=== PATIENT | female | born 1995 | race Caucasian/White ===

== ENCOUNTER 2018-11-19 20:02 | Inpatient (IN) ==
[2018-11-19] MEDS ORDERED: ONDANSETRON INJ 2 MG/ML 2 ML VIAL IV STA (20:52)
[2018-11-19] MEDS ORDERED: fentaNYL citrate 100 MCG/2 ML VIAL IV PRN (20:52)
[2018-11-19] MEDS ORDERED: KETOROLAC TROMETHAMINE 15 MG/ML VIAL IV STA (20:52)
[2018-11-19] MEDS ORDERED: SODIUM CHLORIDE 0.9% 500 ML IV SCH (21:00)
[2018-11-19 21:24] LABS: Basophils # (auto) 0.02 K/uL (0-0.2); Basophils % (auto) 0.2 %; Eosinophils # (auto) 0.02 K/uL (0-0.5); Eosinophils % (auto) 0.2 %; Hematocrit (blood only) 39.9 % (37-47); Hemoglobin 13.4 g/dL (12.0-16.0); Immature Granulocytes # (auto) 0.03 K/uL (0.00-0.02); Immature Granulocytes % (auto) 0.3 %; Lymphocytes % (auto) 5.7 %; Mean Corpuscular Hemoglobin 31.8 pg (25-34); Mean Corpuscular Hgb Conc 33.6 g/dL (32-36); Mean Corpuscular Volume 94.8 fL (80-100); Mean Platelet Volume 10.5 fL (7.4-10.4); Monocytes # (auto) 0.53 K/uL (0.11-0.59); Monocytes % (auto) 6.1 %; Neutrophils # (auto) 7.63 K/uL (1.4-6.5); Neutrophils % (auto) 87.5 %; Platelet Count 341 K/uL (130-400); RDW Standard Deviation 47.9 fL (36.4-46.3); Red Blood Count 4.21 M/uL (4.2-5.4); White Blood Count 8.73 K/uL (4.8-10.8)
[2018-11-19 21:40] LABS: Creatinine Clr Calc Pharmacy 113.4 ml/min; Est GFR (African American) 130.5; Est GFR (Non-African American) 112.6; Potassium 3.8 mmol/L (3.5-5.1)
[2018-11-19 21:43] LABS: Bilirubin,Total 2.4 mg/dl (0.2-1); Globulin 4.2 gm/dl (2.5-4.0); Total Protein 8.2 gm/dl (6.4-8.2)
--- NOTE | 2018-11-19 21:47 | Ultrasound Report ---
ULTRASOUND RIGHT UPPER QUADRANT ABDOMEN CLINICAL HISTORY: Right upper quadrant abdominal pain. COMPARISON STUDY: Abdominal radiographs dated 06/25/2014. TECHNIQUE: Real-time, grayscale, and color flow sonography of the right upper quadrant of the abdomen was performed. Images are reviewed in the transverse and longitudinal planes. FINDINGS: Liver: The liver is normal in size and echotexture. There is no intrahepatic biliary ductal dilatatio n. The main portal vein is patent. Gallbladder: The gallbladder is distended. There are numerous small shadowing calcified gallstone. Th ere is no gallbladder wall thickening or pericholecystic fluid. A sonographic Gaviria's sign is report edly absent. The common bile duct measures up to 0.9 cm in diameter. Pancreas: Visualized portions of the pancreatic head and body are normal in appearance. The splenic v ein is patent. Right kidney: Survey images of the right kidney demonstrate normal size and echotexture. There is no hydronephrosis. Ascites: None. IMPRESSION: 1. The gallbladder is distended and there are numerous small calcified gallstones. There is no gallbl adder wall thickening or pericholecystic fluid. Findings are equivocal for acute cholecystitis which is not excluded. Consider nuclear hepatobiliary scan for further assessment. 2. There is dilatation of the common bile duct which measures up to 9 mm. No intrahepatic ductal dila tation is seen. Electronically signed by: Victor Manuel Hernandez M.D. 11/19/2018 9:45 PM
[2018-11-19 22:35] LABS: Appearance Urine Clear (Clear); Blood Urine Negative (Negative); Color Urine Dark Yellow; Glucose Urine UA Negative (Negative); Ketones Urine Negative (Negative); Leukocyte Esterase Urine Negative (Negative); Nitrite Urine Negative (Negative); Protein Urine Negative (Negative); Urobilinogen Urine Negative (Negative)
[2018-11-19 22:40] LABS: Bilirubin Urine 1+ (Negative); Ictotest Urine Positive (Negative)
[2018-11-19] MEDS ORDERED: SODIUM CHLORIDE 0.9% 1000ML 500 ML IV ONE (22:57)
--- NOTE | 2018-11-19 23:06 | Emergency Department Note ---
Entered by Chanel Murray acting as a scribe for Isaiah Holley DO History of Present Illness General Chief complaint: Abdominal Pain Stated complaint: ABD PAIN Time Seen by Provider: 11/19/18 20:48 Source: patient History of Present Illness Provider complaint: abdominal pain Location: abdomen Radiation: non-radiation Severity: similar to prior episodes Maximum Pain Intensity: 5 Associated symptoms: + other (Negative diarrhea); no nausea/vomiting The patient, who is a 23 year old female with a medical history of abdominal pain, nausea and vomiting, presents to the Emergency Room with complaints of abdominal pain that started 8 hours ago. The patient states that she was originally urgent care and was sent to the ER for further evaluations. The patient explains that she was at her nephews birthday constitution party. The patient states that she had fruits, some chips and a turkey wrap prior to the onset of her symptoms. The patient admits that she is nauseous but did not vomit or have diarrhea. The patient The patient expresses that she has had a similar pain intensity in her abdomen before but it was not in the same area. Home Medications Home Medications Medication Instructions Recorded Confirmed Type azathioprine 100 mg PO QAM 11/19/18 11/19/18 History fluticasone propionate [Flonase 1 spray INTRANASAL HS 11/19/18 11/19/18 History Allergy Relief] infliximab [Remicade] 100 mg IV DIRECTED 11/19/18 11/19/18 History levonorgestrel-ethinyl estrad 1 tab PO QAM 11/19/18 11/19/18 History [[place] (28)] Allergies Allergy/AdvReac Type Severity Reaction Status Date / Time cephalexin AdvReac Hives Unverified 11/19/18 22:08 Past Med/Surg History Medical History Abdominal pain (Acute) Nausea and vomiting (Acute) Social History Feels Safe at Home: Yes Smoking Status: Never smoker Review of Systems See HPI for pertinent positives & negatives. and A total of 10 systems reviewed and were otherwise negative Physical Exam Vital Signs Vital Signs - 24 hr 11/19/18 20:06 11/19/18 21:07 11/19/18 21:08 Temperature 36.7 C Temperature Source Oral Sepsis Recent Fever Within 48 Hours No Sepsis New/Unexplained Change in Mental Status No Sepsis Action Taken by Nursing No Action Required Pulse Rate 71 Pulse Rate [Finger] 61 Pulse Rhythm Regular Pulse Strength Normal Respiratory Rate 20 19 Blood Pressure 123/74 Blood Pressure [Right Arm] 123/56 L Blood Pressure Mean 90 Blood Pressure Mean [Right Arm] 78 Blood Pressure Position Sitting Pulse Oximetry 98 95 Oxygen Delivery Method Room Air Room Air 11/19/18 22:26 Temperature Temperature Source Sepsis Recent Fever Within 48 Hours Sepsis New/Unexplained Change in Mental Status Sepsis Action Taken by Nursing Pulse Rate Pulse Rate [Finger] 71 Pulse Rhythm Pulse Strength Respiratory Rate 13 Blood Pressure Blood Pressure [Right Arm] 117/73 Blood Pressure Mean Blood Pressure Mean [Right Arm] 87 Blood Pressure Position Pulse Oximetry 98 Oxygen Delivery Method Room Air CONSTITUTIONAL/VITAL SIGNS: Reviewed / noted above. GENERAL: Non-toxic in appearance. INTEGUMENTARY: Warm, dry, and [place]. HEAD: Normocephalic. EYES: without scleral icterus or trauma. ENT/OROPHARYNX: clear and moist. LYMPHADENOPATHY/NECK: Is supple without lymphadenopathy or meningismus. RESPIRATORY: Lungs clear and equal. CARDIOVASCULAR: Regular rate and rhythm. GI/ABDOMEN: Soft. Tenderness in the upper abdominal with right greater than left. No organomegaly or pulsatile mass. No rebound or guarding. Normal bowel sounds. EXTREMITIES: Warm and well perfused. BACK: No CVA tenderness. NEUROLOGICAL: Intact without focal deficits. PSYCHIATRIC: normal affect. MUSCULOSKELETAL: Normally developed with good muscle tone. Course 2049: Past medical records reviewed. The patient was evaluated in room C1. A complete history and physical exam was performed. 2249: I reviewed the patient's case with Dr. Radha Fried, [facility] Hospitalist. She will evaluate the patient for further management. Consultations Consultation #1: I reviewed the patient's case with Dr. Radha Fried, [facility] Hospitalist. She will evaluate the patient for further management. Time: 22:50 Administered Medications Discontinued Medications Sodium Chloride (Nss) 500 mls @ 999 mls/hr IV .Q31M APRIL Stop: 11/19/18 21:30 Last Infusion: 11/19/18 22:04 Dose: 0 mls/hr Documented by: [id number] Admin: 11/19/18 21:03 Dose: 999 mls/hr Documented by: [id number] Ketorolac Tromethamine (Toradol) 15 mg IV NOW STA Stop: 11/19/18 20:53 Last Admin: 11/19/18 21:02 Dose: 15 mg Documented by: [id number] Ondansetron HCl (Zofran) 4 mg IV NOW STA Stop: 11/19/18 20:53 Last Admin: 11/19/18 21:03 Dose: 4 mg Documented by: [id number] Medical Decision Making Differential Diagnosis Differential diagnosis includes: appendicitis, diverticulitis, PUD, biliary pathology, UTI, pancreatitis, obstruction, mesenteric ischemia, aortic pathology, infections, inflammatory bowel disease, renal colic, as well as others were entertained. Medical Records Attestation: I reviewed the patient's medical records. Home Medications Current Medication List: was personally reviewed by de Laboratory Data Attestation: I reviewed the patient's lab results. Result diagrams: 11/19/18 21:06 11/19/18 21:06 Lab Results 11/19/18 11/19/18 11/19/18 Range/Units 21:06 21:06 22:28 WBC 8.73 (4.8-10.8) K/uL RBC 4.21 (4.2-5.4) M/uL Hgb 13.4 (12.0-16.0) g/dL Hct 39.9 (37-47) % MCV 94.8 (80-100) fL MCH 31.8 (25-34) pg MCHC 33.6 (32-36) g/dL RDW Std Deviation 47.9 H (36.4-46.3) fL RDW Coeff of Jean Pierre 14.0 (11.5-14.5) % Plt Count 341 (130-400) K/uL MPV 10.5 H (7.4-10.4) fL Immature Gran % (Auto) 0.3 % Neut % (Auto) 87.5 % Lymph % (Auto) 5.7 % [place] % (Auto) 6.1 % Eos % (Auto) 0.2 % Baso % (Auto) 0.2 % Immature Gran # (Auto) 0.03 H (0.00-0.02) K/uL Neut # (Auto) 7.63 H (1.4-6.5) K/uL Lymph # (Auto) 0.50 L (1.2-3.4) K/uL [place] # (Auto) 0.53 (0.11-0.59) K/uL Eos # (Auto) 0.02 (0-0.5) K/uL Baso # (Auto) 0.02 (0-0.2) K/uL Sodium 137 (136-145) mmol/L Potassium 3.8 (3.5-5.1) mmol/L Chloride 103 (98-107) mmol/L Carbon Dioxide 26 (21-32) mmol/L Anion Gap 8.0 (3-11) BUN 7 (7-18) mg/dl Creatinine 0.74 (0.6-1.2) mg/dl Est Cr Clr Drug Dosing 113.4 ml/min Est GFR ( Amer) 130.5 Est GFR (Non-Af Amer) 112.6 BUN/Creatinine Ratio 10.0 (10-20) Glucose 111 H (70-99) mg/dl Calcium 9.0 (8.5-10.1) mg/dl Total Bilirubin 2.4 H (0.2-1) mg/dl AST 108 H (15-37) U/L ALT 47 (12-78) U/L Alkaline Phosphatase 80 (45-117) U/L Total Protein 8.2 (6.4-8.2) gm/dl Albumin 4.0 (3.4-5.0) gm/dl Globulin 4.2 H (2.5-4.0) gm/dl Albumin/Globulin Ratio 1.0 (0.9-2) Lipase 93 (73-393) U/L Urine Color Dark Yellow Urine Appearance Clear (Clear) Urine pH 8.0 H (4.5-7.5) Ur Specific [place] 1.020 (1.000-1.030) Urine Protein Negative (Negative) Urine Glucose (UA) Negative (Negative) Urine Ketones Negative (Negative) Urine Blood Negative (Negative) Urine Nitrite Negative (Negative) Urine Bilirubin 1+ H (Negative) Urine Urobilinogen Negative (Negative) Ur Leukocyte Esterase Negative (Negative) Imaging Data Radiologist's Impression: Radiology results as stated below per my review and the radiologist's interpretation: ULTRASOUND RIGHT UPPER QUADRANT ABDOMEN CLINICAL HISTORY: Right upper quadrant abdominal pain. COMPARISON STUDY: Abdominal radiographs dated 06/25/2014. TECHNIQUE: Real-time, grayscale, and color flow sonography of the right upper quadrant of the abdomen was performed. Images are reviewed in the transverse and longitudinal planes. FINDINGS: Liver: The liver is normal in size and echotexture. There is no intrahepatic biliary ductal dilatation. The main portal vein is patent. Gallbladder: The gallbladder is distended. There are numerous small shadowing calcified gallstone. There is no gallbladder wall thickening or pericholecystic fluid. A sonographic Gaviria's sign is reportedly absent. The common bile duct measures up to 0.9 cm in diameter. Pancreas: Visualized portions of the pancreatic head and body are normal in appearance. The splenic vein is patent. Right kidney: Survey images of the right kidney demonstrate normal size and echotexture. There is no hydronephrosis. Ascites: None. IMPRESSION: 1. The gallbladder is distended and there are numerous small calcified gallstones. There is no gallbladder wall thickening or pericholecystic fluid. Findings are equivocal for acute cholecystitis which is not excluded. Consider nuclear hepatobiliary scan for further assessment. 2. There is dilatation of the common bile duct which measures up to 9 mm. No intrahepatic ductal dilatation is seen. Electronically signed by: Victor Manuel Hernandez M.D. 11/19/2018 9:45 PM Blood Pressure Blood Pressure Findings: Normal blood pressure MDM Narrative This is a 23-year-old female who presents to the ED with a chief complaint of epigastric abdominal pain and nausea that started about 1 PM. She states that she ate some chocolate cake and a chicken wrap about an hour prior to this. She has a history of Crohn's disease but states that her symptoms did not feel like Crohn's disease. She denies any vomiting or diarrhea. The patient's exam reveals some tenderness over the upper abdomen primarily in the right upper quadrant and epigastric area. Her CBC is normal. Complete metabolic panel was normal. Total bilirubin is 2.4. AST is 108. Lipase was negative. Urine did not show infection. Ultrasound reveals gallstones and equivocal findings for acute cholecystitis with a dilated common bile duct. HIDA scan was recommended. The patient's symptoms were treated with IV Toradol, IV fentanyl, IV Zofran and IV fluids. I spoke to the hospitalist about the patient and the patient will be seen by the hospitalist service for further evaluation and care. Impression & Plan Biliary colic, Biliary obstruction Discharge Plan Visit Data Chief Complaint: Abdominal Pain Stated Complaint: ABD PAIN ED Provider: Isaiah Holley Discharge Problem: Biliary colic, Biliary obstruction Patient Disposition: Being Evaluated by Hospitalist Forms Stand Alone Forms: My [facility] Prescriptions Prescriptions: No Action levonorgestrel-ethinyl estrad [[place] (28)] 0.15-0.03 mg Tablet 1 tab PO QAM RF: 0 azathioprine 50 mg Tablet 100 mg PO QAM RF: 0 Remicade 100 mg Recon Soln 100 mg IV DIRECTED RF: 0 fluticasone propionate [Flonase Allergy Relief] 50 mcg/actuation [place],Suspension 1 spray INTRANASAL HS RF: 0 Referrals Referrals: PCP,NO [Primary Care Provider] - The scribe's documentation has been prepared under my direction and personally r eviewed by me in its entirety. I confirm that the note above accurately reflects all work, treatment, procedures, and medical decision making performed by me.
[2018-11-19 23:20] LABS: Pregnancy Test, Serum Negative (Negative)
--- NOTE | 2018-11-19 23:36 | History & Physical Report ---
Date of Service November 19, 2018 Assessment & Plan (1) Cholecystitis: Possible acute cholecystitis. Patient with RUQ discomfort, RUQUS is equivocal, HIDA recommended. She is afebrile, HD stable, non-toxic in appearance, no leukocytosis. Still with abdominal pain 4/10 -Observation to medical floor -Morphine PRN pain -Zofran PRN nausea -Zosyn 3.375gm IV q 8 hours - patient immunosuppressed -HIDA scan ordered - General Surgery consultation pending results -Repeat LFTs in AM Present on Admission?: Yes (2) Biliary obstruction: Suspected biliary obstruction. Patient with elevated Tbili at 2.4, urine + for bilirubin, gallbladder US reveals dilatation of the CBD to 9mm. Alkaline phosphatase is within normal limits. Numerous gallstones present. Patient with history of Crohn's disease often causing increased gall stone formation. Patient afebrile, no leukocytosis, non-toxic in appearance - no concern for cholangitis -Check MRCP -GI consultation pending results -Repeat LFTs in the AM -Empiric Zosyn as above. Present on Admission?: Yes (3) Crohns disease: Chronic. Stable -Continue Azathioprine -Remicade F/E/N - NSS at 80mL/hr x 2 liters, electrolytes WNL, NPO for now Ppx - Low risk for DVT, IVF and ambulation encouraged Code - Full per discussion with patient Disposition - Observation to medical floor History of Present Illness Chief Complaint: abdominal pain Primary Care Provider: NO PCP Henri Chisholm is a 23yo C female with history of Crohn's disease on immunosuppressive therapy with Azathioprine and Remicade presenting with acute onset of upper abdominal pain. Patient was at a birthday democrat this afternoon and ate some cake and a sandwich. Approximately one hour after eating she developed severe RUQ and upper abdominal pain. Pain rated 8-9/10, squeezing in nature associated with nausea. She denies fevers/chills/jaundice or icterus. No diarrhea/melena/hematochezia. No sick contacts. No history of prior. Still with discomfort 4/10 in severity. Patient's Crohn's is well controlled with her current regimen. She states that this pain is nothing like her prior Crohn's flares. ER Course: Fentanyl, Toradol, Zofran, NSS Allergies Allergy/AdvReac Type Severity Reaction Status Date / Time cephalexin AdvReac Hives Unverified 11/19/18 22:08 Home Medications Home Medications Medication Instructions Recorded Confirmed Type azathioprine 100 mg PO QAM 11/19/18 11/19/18 History fluticasone propionate [Flonase 1 spray INTRANASAL HS 11/19/18 11/19/18 History Allergy Relief] infliximab [Remicade] 100 mg IV DIRECTED 11/19/18 11/19/18 History levonorgestrel-ethinyl estrad 1 tab PO QAM 11/19/18 11/19/18 History [[place] (28)] Past Med/Surg History Medical History Crohn disease No significant past surgical history Family History Other No significant family history Social History marital status: Feels Safe at Home: Yes Smoking Status: Never smoker Hx Alcohol Use: No Hx Substance Use: No Review of Systems Review of Systems: All systems reviewed & are unremarkable except as noted in HPI & below Patient reports difficulty with deep breathing secondary to discomfort Physical Exam Physical Exam: General: patient sitting upright in bed, NAD, non-toxic in appearance, AA&O x 4 Skin: warm, dry, intact, no rashes or lesions, no jaundice HEENT: NC/AT, PERRL, EOMI, anicteric sclera, conjunctiva without injection, external ear normal to inspection and nontender, nares patent, moist mucus membranes, dentition intact, no oropharyngeal lesions, neck supple, trachea midline, no LAD, no thyromegaly, no JVD Heart: +S1/S2, regular, no m/r/g Lungs: equal air entry bilaterally, no rales/rhonchi/wheezes Abd: +BS, soft, ND, tenderness to palpation in the epigastric region and RUQ with voluntary guarding, no masses/organomegaly/ascites Ext: warm, 2+ pulses in UE/LE bilaterally, no clubbing/cyanosis or edema Neuro: nonfocal, patient AA&O x 4, speech intact, no facial droop, moving all extremities on command with equal strength 5/5 Results & Data Vital Signs (Past 12 Hours) Vital Signs Temp Pulse Pulse Resp BP BP Pulse Ox 11/19/18 22:26 71 13 117/73 98 11/19/18 21:08 61 19 123/56 L 95 11/19/18 20:06 36.7 C 71 20 123/74 98 Laboratory Results Lab Results 11/19/18 11/19/18 11/19/18 Range/Units 21:05 21:06 21:06 WBC 8.73 (4.8-10.8) K/uL RBC 4.21 (4.2-5.4) M/uL Hgb 13.4 (12.0-16.0) g/dL Hct 39.9 (37-47) % MCV 94.8 (80-100) fL MCH 31.8 (25-34) pg MCHC 33.6 (32-36) g/dL RDW Std Deviation 47.9 H (36.4-46.3) fL RDW Coeff of [place] 14.0 (11.5-14.5) % Plt Count 341 (130-400) K/uL MPV 10.5 H (7.4-10.4) fL Immature Gran % (Auto) 0.3 % Neut % (Auto) 87.5 % Lymph % (Auto) 5.7 % [place] % (Auto) 6.1 % Eos % (Auto) 0.2 % Baso % (Auto) 0.2 % Immature Gran # (Auto) 0.03 H (0.00-0.02) K/uL Neut # (Auto) 7.63 H (1.4-6.5) K/uL Lymph # (Auto) 0.50 L (1.2-3.4) K/uL [place] # (Auto) 0.53 (0.11-0.59) K/uL Eos # (Auto) 0.02 (0-0.5) K/uL Baso # (Auto) 0.02 (0-0.2) K/uL Sodium 137 (136-145) mmol/L Potassium 3.8 (3.5-5.1) mmol/L Chloride 103 (98-107) mmol/L Carbon Dioxide 26 (21-32) mmol/L Anion Gap 8.0 (3-11) BUN 7 (7-18) mg/dl Creatinine 0.74 (0.6-1.2) mg/dl Est Cr Clr Drug Dosing 113.4 ml/min Est GFR ( Amer) 130.5 Est GFR (Non-Af Amer) 112.6 BUN/Creatinine Ratio 10.0 (10-20) Glucose 111 H (70-99) mg/dl Calcium 9.0 (8.5-10.1) mg/dl Total Bilirubin 2.4 H (0.2-1) mg/dl AST 108 H (15-37) U/L ALT 47 (12-78) U/L Alkaline Phosphatase 80 (45-117) U/L Total Protein 8.2 (6.4-8.2) gm/dl Albumin 4.0 (3.4-5.0) gm/dl Globulin 4.2 H (2.5-4.0) gm/dl Albumin/Globulin Ratio 1.0 (0.9-2) Lipase 93 (73-393) U/L HCG, Qual Negative (Negative) Urine Color Urine Appearance (Clear) Urine pH (4.5-7.5) Ur Specific [place] (1.000-1.030) Urine Protein (Negative) Urine Glucose (UA) (Negative) Urine Ketones (Negative) Urine Blood (Negative) Urine Nitrite (Negative) Urine Bilirubin (Negative) Urine Urobilinogen (Negative) Ur Leukocyte Esterase (Negative) 11/19/18 Range/Units 22:28 WBC (4.8-10.8) K/uL RBC (4.2-5.4) M/uL Hgb (12.0-16.0) g/dL Hct (37-47) % MCV (80-100) fL MCH (25-34) pg MCHC (32-36) g/dL RDW Std Deviation (36.4-46.3) fL RDW Coeff of [place] (11.5-14.5) % Plt Count (130-400) K/uL MPV (7.4-10.4) fL Immature Gran % (Auto) % Neut % (Auto) % Lymph % (Auto) % [place] % (Auto) % Eos % (Auto) % Baso % (Auto) % Immature Gran # (Auto) (0.00-0.02) K/uL Neut # (Auto) (1.4-6.5) K/uL Lymph # (Auto) (1.2-3.4) K/uL [place] # (Auto) (0.11-0.59) K/uL Eos # (Auto) (0-0.5) K/uL Baso # (Auto) (0-0.2) K/uL Sodium (136-145) mmol/L Potassium (3.5-5.1) mmol/L Chloride (98-107) mmol/L Carbon Dioxide (21-32) mmol/L Anion Gap (3-11) BUN (7-18) mg/dl Creatinine (0.6-1.2) mg/dl Est Cr Clr Drug Dosing ml/min Est GFR ( Amer) Est GFR (Non-Af Amer) BUN/Creatinine Ratio (10-20) Glucose (70-99) mg/dl Calcium (8.5-10.1) mg/dl Total Bilirubin (0.2-1) mg/dl AST (15-37) U/L ALT (12-78) U/L Alkaline Phosphatase (45-117) U/L Total Protein (6.4-8.2) gm/dl Albumin (3.4-5.0) gm/dl Globulin (2.5-4.0) gm/dl Albumin/Globulin Ratio (0.9-2) Lipase (73-393) U/L HCG, Qual (Negative) Urine Color Dark Yellow Urine Appearance Clear (Clear) Urine pH 8.0 H (4.5-7.5) Ur Specific [place] 1.020 (1.000-1.030) Urine Protein Negative (Negative) Urine Glucose (UA) Negative (Negative) Urine Ketones Negative (Negative) Urine Blood Negative (Negative) Urine Nitrite Negative (Negative) Urine Bilirubin 1+ H (Negative) Urine Urobilinogen Negative (Negative) Ur Leukocyte Esterase Negative (Negative) Diagnostic Findings ULTRASOUND RIGHT UPPER QUADRANT ABDOMEN CLINICAL HISTORY: Right upper quadrant abdominal pain. COMPARISON STUDY: Abdominal radiographs dated 06/25/2014. TECHNIQUE: Real-time, grayscale, and color flow sonography of the right upper quadrant of the abdomen was performed. Images are reviewed in the transverse and longitudinal planes. FINDINGS: Liver: The liver is normal in size and echotexture. There is no intrahepatic biliary ductal dilatation. The main portal vein is patent. Gallbladder: The gallbladder is distended. There are numerous small shadowing calcified gallstone. There is no gallbladder wall thickening or pericholecystic fluid. A sonographic Gaviria's sign is reportedly absent. The common bile duct measures up to 0.9 cm in diameter. Pancreas: Visualized portions of the pancreatic head and body are normal in appearance. The splenic vein is patent. Right kidney: Survey images of the right kidney demonstrate normal size and echotexture. There is no hydronephrosis. Ascites: None. IMPRESSION: 1. The gallbladder is distended and there are numerous small calcified gallstones. There is no gallbladder wall thickening or pericholecystic fluid. Findings are equivocal for acute cholecystitis which is not excluded. Consider nuclear hepatobiliary scan for further assessment. 2. There is dilatation of the common bile duct which measures up to 9 mm. No intrahepatic ductal dilatation is seen. Electronically signed by: Victor Manuel Hernandez M.D. 11/19/2018 9:45 PM Dictated: 11/19/[id number] Transcribed: 11/19/182142 Code Status & VTE Plan VTE Prophylaxis Plan VTE Prophylaxis will be ordered: No PG Care Time/CCT Total # of Minutes Spent Total Time Spent with Patient: Total time spent is greater than 50% in coordination of care (as documented) at patient's floor/unit and/or counseling patient: (1) Crohns disease Gastrointestinal tract location: unspecified location Digestive disease complication type: without complication Qualified Code(s): K50.90 - Crohn's disease, unspecified, without complications
[2018-11-20] MEDS ORDERED: PIPERACILL/TAZOBAC CONSULT ACTIVE PRN (00:45)
[2018-11-20] MEDS ORDERED: SODIUM CHLORIDE 0.9% 1000ML 1,000 ML IV SCH (00:45)
[2018-11-20] MEDS ORDERED: MoRPHine SULFATE 2 MG/ML CARP IV PRN ×2 (00:45→18:23)
[2018-11-20] MEDS ORDERED: ALUMINUM/MAGNESIUM SUSP 30 ML UDC PO PRN (00:45)
[2018-11-20] MEDS ORDERED: PIPERACILLIN/TAZOBACTAM 4.5 GM in DEXTROSE 5% 100 ML IV ONE (01:15)
[2018-11-20] MEDS ORDERED: PIPERACILLIN/TAZOBACTAM 3.375 GM in DEXTROSE 5% 100 ML IV SCH (06:00)
[2018-11-20 06:42] LABS: Basophils # (auto) 0.01 K/uL (0-0.2); Basophils % (auto) 0.2 %; Eosinophils # (auto) 0.06 K/uL (0-0.5); Eosinophils % (auto) 0.9 %; Hematocrit (blood only) 35.5 % (37-47); Hemoglobin 11.8 g/dL (12.0-16.0); Immature Granulocytes # (auto) 0.01 K/uL (0.00-0.02); Immature Granulocytes % (auto) 0.2 %; Lymphocytes # (auto) 0.97 K/uL (1.2-3.4); Mean Corpuscular Hemoglobin 31.8 pg (25-34); Mean Corpuscular Hgb Conc 33.2 g/dL (32-36); Mean Corpuscular Volume 95.7 fL (80-100); Mean Platelet Volume 10.2 fL (7.4-10.4); Monocytes # (auto) 0.49 K/uL (0.11-0.59); Monocytes % (auto) 7.6 %; Neutrophils # (auto) 4.92 K/uL (1.4-6.5); Neutrophils % (auto) 76.1 %; Platelet Count 289 K/uL (130-400); RDW Coefficient of Variation 13.9 % (11.5-14.5); RDW Standard Deviation 48.1 fL (36.4-46.3); Red Blood Count 3.71 M/uL (4.2-5.4); White Blood Count 6.46 K/uL (4.8-10.8)
[2018-11-20 07:11] LABS: BUN Creatinine Ratio 6.9 (10-20); Creatinine Clr Calc Pharmacy 113.3 ml/min; Est GFR (African American) 130.5; Est GFR (Non-African American) 112.6; Potassium 3.8 mmol/L (3.5-5.1)
--- NOTE | 2018-11-20 07:28 | Magnetic Resonance Report ---
MR MRCP CLINICAL HISTORY: dilated CBD COMPARISON STUDY: Gallbladder ultrasound dated 11/19/2018 FINDINGS: Innumerable gallstones are visualized. There are 2 distal common bile duct filling defects. Each measures approximately 2 mm. These are cons istent with calculi. The common bile duct measures 6 mm. There is no evidence of significant intrahepatic biliary ductal dilatation. The pancreatic duct is of normal caliber. IMPRESSION: 1. Cholelithiasis 2. Choledocholithiasis 3. 6 mm common bile duct. No evidence of pancreatic ductal dilatation Electronically signed by: Michael Mcghee M.D. 11/20/2018 7:27 AM
[2018-11-20 07:56] LABS: Bilirubin Direct 1.3 mg/dl (0-0.2); Bilirubin,Total 2.8 mg/dl (0.2-1); Total Protein 6.5 gm/dl (6.4-8.2)
--- NOTE | 2018-11-20 09:11 | Gastrointestinal Consultation ---
Date of Consultation November 20, 2018 Assessment & Plan (1) Choledocholithiasis: Ms. Chisholm is a 23 yr old female with choledocholithiasis (pain, elevated LFTs, MRCP with CBD stones) w/o evidence of cholangitis (denies fever/chills, no leukocytosis). 1. Plan for ERCP today by Dr. Meadows. Procedure, including images of the biliary system; risks and benefits explained. 2. No clear GI indication for antibiotics. 3. Please keep pt NPO. 4. Will consult surgery to consider eventual cholecystectomy. 5. Check CBC, LFTs tomorrow. 6. Further recommendations to follow ERCP. Present on Admission?: Yes Supervising Physician Co-Signing Physician Notes I performed a history and physical examination of the patient, including specifically on physical exam - soft, nontender abdomen. I have discussed the patient's management with Anna. Please refer to the nurse practitioner's note for the documented findings and plan of care. ERCP today for CBD stones. History of Present Illness Reason for Consultation: Increasing bili, choledocholithiasis Requesting Physician: Wil Rice MD Attending Physician: Wil Rice MD History of Present Illness Ms. Henri Chisholm in a 23 yr old female with a hx of Crohn's PCP who presented to the ED yesterday for upper abdomen pain. This began after eating lunch yesterday. Because the pain was intense, she presented to the [facility] ED. On arrival, US with gallstones and CBD dilated to 9mm. MRCP early this morning with two distal CBD stones. LFTs are increasing: T Bili 2.4 ->2.8, AST 108->123, ALT 47->55, Alk Phos 80->75. Lipase and WBCs are normal. The pt is seen and examined while she is sitting up in bed. She is awake, alert, oriented, comfortable. She reports severe pain in the upper abdomen after eating yesterday around noon. She got relief after pain medication in the ED. She denies any recent fevers, chills sweats. She had nausea but not vomiting or diarrhea. Denies any recent yellow skin/eyes or very dark urine. Allergies Allergy/AdvReac Type Severity Reaction Status Date / Time cephalexin AdvReac Hives Unverified 11/19/18 22:08 Home Medications Home Medications Medication Instructions Recorded Confirmed Type azathioprine 100 mg PO QAM 11/19/18 11/19/18 History fluticasone propionate [Flonase 1 spray INTRANASAL HS 11/19/18 11/19/18 History Allergy Relief] infliximab [Remicade] 100 mg IV DIRECTED 11/19/18 11/19/18 History levonorgestrel-ethinyl estrad 1 tab PO QAM 11/19/18 11/19/18 History [[place] (28)] Patient History Medical History Crohn disease No significant past surgical history Family History Other No significant family history Social History Preferred Language: Kazakh Communication Ability: Effective Radiology Transporter Required: No Beliefs That Will Affect Care: None marital status: Current Living Situation: Spouse Feels Safe at Home: Yes Smoking Status: Never smoker Hx Alcohol Use: Yes Alcohol type: beer, wine and hard liquor Hx Substance Use: No Review of Systems Review of Systems: ROS: Gen: Denies weakness, fevers, weight loss Eyes: No eye redness, or pain, no recent vision changes Resp: No SOB, no cough Cardio: No palpitations/irregular beats, no chest pain GI: + post prandial upper abdominal pain, no nausea/vomiting : Denies pain on urination Skin: No jaundice, itching or new rashes Physical Exam Constitutional: WD/WN, vitals as above well developed, well nourished and + acute distress Eyes: PERRL, conjunctivae normal, anicteric sclerae ENMT: external ear and nose normal, oropharynx normal Neck: trachea midline, no thyromegaly Respiratory: normal respiratory effort, lungs clear to auscultation Cardiovascular: RRR, no murmur, no edema Gastrointestinal (Abdomen): normal bowel sounds, soft, nontender, no hepatosplenomegaly Skin: no rashes, warm and dry Neurologic: PERRL, EOMI, accommodation nl, no face palsy, no dysarthria Psychiatric: A+Ox3, euthymic affect Lymphatic: no cervical or axillary lymphadenopathy Results & Data Vital Signs (Past 12 Hours) Vital Signs Temp Pulse Pulse Resp BP BP Pulse Ox 11/20/18 07:23 36.5 C 67 16 99/67 L 100 11/20/18 04:45 36.7 C 58 L 18 93/54 L 99 11/20/18 00:08 37 C 70 16 110/71 98 11/19/18 23:40 100 11/19/18 23:30 119/73 11/19/18 23:20 95 11/19/18 23:02 114/82 11/19/18 22:50 69 19 100 11/19/18 22:40 70 16 98 11/19/18 22:30 68 17 88/74 L 98 11/19/18 22:27 75 20 117/73 96 11/19/18 22:26 71 13 117/73 98 11/19/18 21:15 59 L 18 99 Laboratory Results WBC 6, Hb 11.8, Hct 35, Platelets 289, T Bili 2.8, D Bili 1.3, AST 123, ALT 55, Alk Phos 75, lipase 93 Diagnostic Findings GB US on 11/19/18: 1. The gallbladder is distended and there are numerous small calcified gallstones. There is no gallbladder wall thickening or pericholecystic fluid. Findings are equivocal for acute cholecystitis which is not excluded. Consider nuclear hepatobiliary scan for further assessment. 2. There is dilatation of the common bile duct which measures up to 9 mm. No intrahepatic ductal dilatation is seen. MRCP 11/20/18: There are 2 distal common bile duct filling defects. Each measures approximately 2 mm. These are consistent with calculi. The common bile duct measures 6 mm. There is no evidence of significant intrahepatic biliary ductal dilatation. The pancreatic duct is of normal caliber. IMPRESSION: 1. Cholelithiasis 2. Choledocholithiasis 3. 6 mm common bile duct. No evidence of pancreatic ductal dilatation
[2018-11-20] MEDS ORDERED: INDOMETHACIN 50 MG SUPP PR ONE ×2 (10:10→14:22)
[2018-11-20] MEDS: azaTHIOprine 50 MG TAB PO SCH (10:25)
[2018-11-20] MEDS ORDERED: LACTATED RINGER'S 1,000 ML IV SCH (10:30)
--- NOTE | 2018-11-20 11:57 | Surgery Consultation ---
Date of Consultation November 20, 2018 Assessment & Plan (1) Choledocholithiasis: This is a 23y F who presents to the [facility] with complaints of upper abdominal pain and evidence of choledocholithiasis and elevated LFTs. GI is following and plans to perform an ERCP this afternoon. Will discuss with OR to see if we can plan for laparoscopic cholecystectomy following ERCP today. Continue patient NPO with IVF. Dr. Finley will see patient this afternoon and obtain surgical consent. as above. pt feeling better now. for ERCP followed by lap elijah. discussed options/risks/benefits. discussed bleeding/infection/dvt/pe/mi/cva/injury to another organ/bile leaks/etc... questions answered. will proceed with lap elijah following ERCP. History of Present Illness Attending Physician: Wil Rice MD History of Present Illness This is a 23y F with a PMH of crohn's disease diagnosed last year who presents to the [facility] ED on 11/19/18 with complaints of abdominal pain. Patient states that she developed an acute onset of upper abdominal pain yesterday around 1pm after eating a turkey wrap and some cake. She endorses nausea, but denies vomiting, fever/chills, diarrhea or constipation. Last bowel movement was yesterday. Her abdominal pain did not reside so she presented to an urgent care around 7pm last night where they were concerned for a gallbladder etiology and encouraged patient to be further evaluated in the ED. In the ED patient underwent a RUQ US that showed dilation of the common bile duct up to 9mm and a distended gallbladder with stones. MRCP obtained thereafter revealed cholelithiasis, choledocholithiasis, and a 6mm common bile duct. Patient afebrile and without an elevated WBC. LFT's remarkable for Tbili 2.8, AST: 123, ALT: 55. GI was con sulted and they are planning to perform an ERCP today. General surgery was also consulted for further evaluation. Allergies Allergy/AdvReac Type Severity Reaction Status Date / Time cephalexin AdvReac Hives Unverified 11/19/18 22:08 Home Medications Home Medications Medication Instructions Recorded Confirmed Type azathioprine 100 mg PO QAM 11/19/18 11/19/18 History fluticasone propionate [Flonase 1 spray INTRANASAL HS 11/19/18 11/19/18 History Allergy Relief] infliximab [Remicade] 100 mg IV DIRECTED 11/19/18 11/19/18 History levonorgestrel-ethinyl estrad 1 tab PO QAM 11/19/18 11/19/18 History [[place] (28)] Patient History Medical History Crohn disease No significant past surgical history Family History Other No significant family history Social History Preferred Language: Chinese Communication Ability: Effective 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: No Beliefs That Will Affect Care: None marital status: Current Living Situation: Spouse Feels Safe at Home: Yes Smoking Status: Never smoker Hx Alcohol Use: Yes Alcohol type: beer, wine and hard liquor Hx Substance Use: No Review of Systems 2 Constitutional: no fever and no chills Respiratory: denies shortness of breath Cardiovascular: no chest pain Gastrointestinal: + abdominal pain (across upper abdomen) and + nausea; no vomiting and no change in bowel habits Physical Exam Physical Exam: awake/alert Constitutional: well developed and well nourished; no acute distress Respiratory: normal respiratory effort; no respiratory distress Cardiovascular: Rate/Rhythm: regular rate Gastrointestinal (Abdomen): Inspection/Auscultation: abdomen not distended Percussion/Palpation: abdomen soft; abdomen nontender Results & Data Vital Signs (Past 12 Hours) Vital Signs Temp Pulse Resp BP Pulse Ox 11/20/18 07:23 36.5 C 67 16 99/67 L 100 11/20/18 04:45 36.7 C 58 L 18 93/54 L 99 11/20/18 00:08 37 C 70 16 110/71 98 ULTRASOUND RIGHT UPPER QUADRANT ABDOMEN CLINICAL HISTORY: Right upper quadrant abdominal pain. COMPARISON STUDY: Abdominal radiographs dated 06/25/2014. TECHNIQUE: Real-time, grayscale, and color flow sonography of the right upper quadrant of the abdomen was performed. Images are reviewed in the transverse and longitudinal planes. FINDINGS: Liver: The liver is normal in size and echotexture. There is no intrahepatic biliary ductal dilatation. The main portal vein is patent. Gallbladder: The gallbladder is distended. There are numerous small shadowing calcified gallstone. There is no gallbladder wall thickening or pericholecystic fluid. A sonographic Gaviria's sign is reportedly absent. The common bile duct measures up to 0.9 cm in diameter. Pancreas: Visualized portions of the pancreatic head and body are normal in appearance. The splenic vein is patent. Right kidney: Survey images of the right kidney demonstrate normal size and echotexture. There is no hydronephrosis. Ascites: None. IMPRESSION: 1. The gallbladder is distended and there are numerous small calcified gallstone s. There is no gallbladder wall thickening or pericholecystic fluid. Findings are equivocal for acute cholecystitis which is not excluded. Consider nuclear hepatobiliary scan for further assessment. 2. There is dilatation of the common bile duct which measures up to 9 mm. No intrahepatic ductal dilatation is seen. Electronically signed by: Victor Manuel Hernandez M.D. 11/19/2018 9:45 PM MR MRCP CLINICAL HISTORY: dilated CBD COMPARISON STUDY: Gallbladder ultrasound dated 11/19/2018 FINDINGS: Innumerable gallstones are visualized. There are 2 distal common bile duct filling defects. Each measures approximately 2 mm. These are consistent with calculi. The common bile duct measures 6 mm. There is no evidence of significant intrahepatic biliary ductal dilatation. The pancreatic duct is of normal caliber. IMPRESSION: 1. Cholelithiasis 2. Choledocholithiasis 3. 6 mm common bile duct. No evidence of pancreatic ductal dilatation Electronically signed by: Michael Mcghee M.D. 11/20/2018 7:27 AM PG Care Time/CCT Total # of Minutes Spent Total Time Spent with Patient: Total time spent is greater than 50% in coordination of care (as documented) at patient's floor/unit and/or counseling patient:
--- NOTE | 2018-11-20 13:57 | History & Physical Bridge Note ---
Date of Service November 20, 2018 History & Physical Bridge Note I have examined the patient, reviewed the History & Physical and in the interval since the performance of the History & Physical I have noted the following changes of clinical significance: no changes noted ERCP today.
[2018-11-20] MEDS ORDERED: fentaNYL citrate 100 MCG/2 ML VIAL ONE ×4 (14:12→17:09)
[2018-11-20] MEDS ORDERED: MIDAZOLAM HCL 1 MG/ML 2ML VIAL ONE (14:13)
[2018-11-20 14:20] LABS: Prothrombin Time 10.3 Seconds (9.0-12.0)
[2018-11-20] MEDS ORDERED: BUPIVACAINE/EPINEPHRINE 0.5% MPF 1:200,000 30 ML VIAL ONE (14:20)
[2018-11-20] MEDS ORDERED: ONDANSETRON INJ 2 MG/ML 2 ML VIAL IV PRN (14:28)
[2018-11-20] MEDS ORDERED: HYDROmorphone INJ 1 MG/ML SYRINGE IV PRN (14:28)
[2018-11-20] MEDS ORDERED: PROMETHAZINE HCL 12.5 MG in SODIUM CHLORIDE 0.9% 50 ML IV PRN (14:28)
[2018-11-20] MEDS ORDERED: ATROPINE SULFATE 0.1 MG/ML 10ML SYR IV PRN (14:28)
--- NOTE | 2018-11-20 14:28 | Anesthesiology Consultation ---
Date of Service November 20, 2018 Assessment & Plan (1) Encounter for pre-operative examination: Chart Review Chart Review: Acceptable Risk for Surgery History Surgery Operation Date: 11/20/18 08:40 Proposed Procedures p Endoscopic Retrograde Cholangiopancreatogram; - Hortensia Meadows MD s Laparoscopic Cholecystectomy - Gerber Finley DO Height/Weight Height: 5 ft 4 in Weight: 72.4 kg Allergies Allergy/AdvReac Type Severity Reaction Status Date / Time cephalexin AdvReac Hives Unverified 11/20/18 14:14 Medications Home Medications Medication Instructions Recorded Confirmed Last Taken azathioprine 100 mg PO QAM 11/19/18 11/20/18 11/19/18 fluticasone propionate [Flonase 1 spray INTRANASAL HS 11/19/18 11/20/18 11/08/18 Allergy Relief] infliximab [Remicade] 100 mg IV DIRECTED 11/19/18 11/20/18 10/20/18 levonorgestrel-ethinyl estrad 1 tab PO QAM 11/19/18 11/20/18 11/19/18 [[place] (28)] Active Medications Generic Name Dose Route Start Last Admin Trade Name Freq PRN Reason Stop Dose Admin Azathioprine 100 mg 11/20/18 09:00 11/20/18 10:25 Imuran PO 12/20/18 08:59 100 mg QAM APRIL Administration Lactated Ringer's 1,000 mls @ 125 mls/hr 11/20/18 10:30 11/20/18 11:07 Lr IV 12/20/18 10:29 125 mls/hr .Q8H APRIL Administration Miscellaneous 1 ea 11/20/18 01:30 11/20/18 07:26 Order Awaiting Action N/A 12/20/18 01:29 Not Given QS APRIL NPO Date Last Intake of Fluids: 11/20/18 Time Last Intake of Fluids: 10:30 Date Last Intake of Solids: 11/19/18 Time Last Intake of Solids: 12:30 Past Medical History Medical History Crohn disease No significant past surgical history Past Family History Family History Other No significant family history Past Surgical History Surgical History Hx of colonoscopy Social History Smoking Status: Never smoker Hx Alcohol Use: Yes Alcohol type: beer, wine and hard liquor alcohol intake frequency: holidays/special occasions only Hx Substance Use: No Physical Exam Vital Signs Last Vital Signs Temp 36.5 C 11/20/18 07:23 Pulse 67 11/20/18 07:23 Resp 16 11/20/18 07:23 BP 99/67 L 11/20/18 07:23 Pulse Ox 100 11/20/18 07:23 Testing Laboratory Results 11/20/18 06:15 11/20/18 06:15 PT 10.3 Seconds (9.0-12.0) 11/20/18 13:57 INR 1.0 (0.9-1.1) 11/20/18 13:57 Urine Color Dark Yellow 11/19/18 22:28 Urine Appearance Clear (Clear) 11/19/18 22:28 Urine pH 8.0 (4.5-7.5) H 11/19/18 22:28 Ur Specific [place] 1.020 (1.000-1.030) 11/19/18 22:28 Urine Protein Negative (Negative) 11/19/18 22:28 Urine Glucose (UA) Negative (Negative) 11/19/18 22:28 Urine Ketones Negative (Negative) 11/19/18 22:28 Urine Nitrite Negative (Negative) 11/19/18 22:28 Ur Leukocyte Esterase Negative (Negative) 11/19/18 22:28
[2018-11-20] MEDS ORDERED: CIPROFLOXACIN 400MG / 200ML D5W IV ONE (14:34)
--- NOTE | 2018-11-20 15:26 | Operative Report ---
Post Operative Report Pre & Post Diagnosis Operation Date: 11/20/18 08:40 <No data on this case meets the specified criteria> Procedure Operation Date: 11/20/18 08:40 Actual Procedures p Endoscopic Retrograde Cholangiopancreatogram; spincterotomy, placement of biliary stent(Not Applicable) - Hortensia Meadows MD s Laparoscopic Cholecystectomy(Not Applicable) - Gerber Finley, DO Surgeon Hortensia Meadows MD Corporate Tutor None Estimated Blood Loss 0 Findings See Below (CBD stones removed and stent placed) Specimens None Description of Procedure ERCP I attest to the content of the Intraoperative Record and any orders documented therein. Any exceptions are noted below.
--- NOTE | 2018-11-20 15:40 | GI REPORT ---
Patient Name: Henri Chisholm Procedure Date: 11/20/2018 2:06 PM Date of : 1995 Admit Type: Inpatient Age: 23 Gender: Female Attending MD: Hortensia Meadows MD Procedure: ERCP Providers: Hortensia Meadows MD Referring MD: Wil Rice Md, Milton Izaguirre Do, Srini Alfaro MD Indications: Bile duct stone on magnetic resonance cholangiopancreatography, For therapy of bile duct stone(s), Elevated liver enzymes Medicines: Propofol per Anesthesia Complications: No immediate complications. Estimated Blood Loss: Estimated blood loss: none. Procedure: Pre-Anesthesia Assessment: - Prior to the procedure, a History and Physical was performed, and patient medications and allergies were reviewed. The patient is competent. The risks and benefits of the procedure and the sedation options and risks were discussed with the patient. All questions were answered and informed consent was obtained. Patient identification and proposed procedure were verified by the physician and the nurse in the procedure room. Mental Status Examination: alert and oriented. Airway Examination: normal oropharyngeal airway and neck mobility. Respiratory Examination: clear to auscultation. CV Examination: normal. ASA Grade Assessment: II - A patient with mild systemic disease. After reviewing the risks and benefits, the patient was deemed in satisfactory condition to undergo the procedure. The anesthesia plan was to use general anesthesia. Immediately prior to administration of medications, the patient was re-assessed for adequacy to receive sedatives. The heart rate, respiratory rate, oxygen saturations, blood pressure, adequacy of pulmonary ventilation, and response to care were monitored throughout the procedure. The physical status of the patient was re-assessed after the procedure. After obtaining informed consent, the scope was passed under direct vision. Throughout the procedure, the patient's blood pressure, pulse, and oxygen saturations were monitored continuously. The Scope was introduced through the mouth, and advanced to the duodenum and used to inject contrast into the bile duct. The ERCP was accomplished without difficulty. The patient tolerated the procedure well. Findings: The residential remodeling subcontractor film was normal. The esophagus was successfully intubated under direct vision. The scope was advanced to a normal major papilla in the descending duodenum without detailed examination of the pharynx, larynx and associated structures, and upper GI tract. The upper GI tract was grossly normal. A 0.035 inch straight standard wire was passed into the biliary tree from the first attempt. The Fusion OMNI sphincterotome was passed over the guidewire and the bile duct was then deeply cannulated. Contrast was injected. I personally interpreted the bile duct images. Ductal flow of contrast was adequate. Image quality was adequate. Contrast extended to the main bile duct. The main bile duct was dilated. The largest diameter was 9 mm. Opacification of the cystic duct was seen. The lower third of the main bile duct contained one stone. Biliary sphincterotomy was made with a monofilament traction (standard) sphincterotome using ERBE electrocautery. There was no post-sphincterotomy bleeding. Dilation of the common bile duct with an 8 mm balloon dilator was successful. The biliary tree was swept with an 11.5 mm balloon starting at the bifurcation. One stone was removed. No stones remained. There was a small stone at the cystic duct take off hence I planned to place a stent to prevent inadvetant retained CBD stones after cholecystectomy. One 10 Fr by 8 cm plastic biliary stent with a single external flap and a single internal flap was placed into the common bile duct. Bile flowed through the stent. The stent was in good position. Indomethacin 100 mg was given via suppository to decrease the risk of post-ERCP pancreatitis (PEP). PD was not cannulated nor injected with contrast. Impression: - Choledocholithiasis was found. Complete removal was accomplished by biliary sphincterotomy, sphincteroplasty and balloon extraction. - One plastic biliary stent was placed into the common bile duct. Recommendation: - [facility]. - Repeat ERCP in 4 weeks to remove stent. - Lap cholecystectomy today per surgery. - Recall GI if needed. Hortensia Meadows MD 11/20/2018 3:40:12 PM This report has been signed electronically. Note Initiated On: 11/20/2018 2:06 PM Number of Addenda: 0 I attest to the content of the Intraoperative Record and orders documented therein, exceptions below {[id number]}
[2018-11-20] MEDS ORDERED: PROPOFOL IV EMULSION 10 MG/ML 20 ML VIAL IV ONE (16:26)
[2018-11-20] MEDS ORDERED: GLYCOPYRROLATE 0.2 MG/ML VIAL ONE (16:26)
[2018-11-20] MEDS ORDERED: LIDOCAINE HCL 2% 2 ML VIAL/AMP(20MG/ML) INFIL ONE (16:26)
[2018-11-20] MEDS ORDERED: ONDANSETRON INJ 2 MG/ML 2 ML VIAL ONE ×2 (16:26→16:49)
[2018-11-20] MEDS ORDERED: ROCURONIUM BROMIDE 10 MG/ML 5 ML VIAL ONE (16:26)
[2018-11-20] MEDS ORDERED: NEOSTIGMINE METHYLSULFATE 5 MG/5 ML SYR ONE (16:26)
[2018-11-20] MEDS ORDERED: DEXAMETHASONE SOD INJ 4 MG/ML VIAL ONE (16:26)
--- NOTE | 2018-11-20 16:42 | Operative Report ---
PG Post Operative Report Pre & Post Diagnosis Operation Date: 11/20/18 08:40 Pre-Op Diagnosis: Cholelithiasis, choledocolithiasis Post-Op Diagnosis: same Procedure Operation Date: 11/20/18 08:40 Actual Procedures p Endoscopic Retrograde Cholangiopancreatogram; spincterotomy, placement of biliary stent(Not Applicable) - MD lolly Tamayo Laparoscopic Cholecystectomy(Not Applicable) - Gerber Finley DO Surgeon Gerber Finley DO Neurological Surgery Teacher hank Lane Estimated Blood Loss 50 Findings Consistent with Post-Op Diagnosis Specimens gallbladder Description of Procedure After informed consent was obtained the patient was taken to the operating room and an ERCP was performed by Dr. Meadows. Please see his dictation for the full report. He was able to successfully remove the choledocholithiasis and place a stent. At the end of his procedure the patient's abdomen was sterilely prepped and draped in usual fashion. A periumbilical incision was made with an 11 blade scalpel and carried down through the soft tissue using electrocautery. The anterior rectus fascia was opened using electrocautery and 2 #0 Vicryl stay sutures were placed. The peritoneum was elevated with hemostats and incised under direct vision using Metzenbaum scissors. A finger sweep was performed and a 12 mm Mccoy trocar was placed. The abdomen was insufflated to 18 mmHg. The laparoscope was inserted and the abdomen was examined in 360. No gross abnormalities were identified. A subxiphoid 5 mm port and 2 right upper quadrant 5 mm ports were placed under direct vision. The patient was placed in a reverse Trendelenburg position and slightly airplaned to the left. The gallbladder was grasped and elevated superiorly and laterally. A [place] dissector was used to take down adhesions around the neck of the gallbladder. The cystic duct was identified and skeletonized. It was clipped twice proximally and once distally and transected using a laparoscopic scissor. In similar fashion the cystic artery was identified and skeletonized clipped and divided. There was a posterior branch that required clipping as well. The gallbladder was removed from the gallbladder fossa with electrocautery. It was placed into an Endo Catch bag. Thorough irrigation was performed. At the end of the procedure there was adequate hemostasis and no evidence of any bile leaks. A final look around the abdomen showed no other abnormalities. The gallbladder and trochars were all removed and the abdomen was desufflated. The fascia of the camera port was closed using 0 Vicryl in a [id number] fashion. All the wounds were irrigated and closed using 4-0 Monocryl. Marcaine was injected around them for postoperative analgesia and skin glue used as a dressing. The patient was awaken extubated and transferred to recovery in stable condition. My physician's insurance legal assistant was present throughout the entire case... helped with prepping the patient. With exposure for trocar placement, as well as retracted the gallbladder throughout the case and also assisted with wound closure and dressing placement. I attest to the content of the Intraoperative Record and any orders documented therein. Any exceptions are noted below.
--- NOTE | 2018-11-20 16:45 | Fluoroscopy Report ---
INTRAOPERATIVE RADIOGRAPHS CLINICAL HISTORY: ERCP procedure. Fluoroscopy time: 1 minute 54 seconds. FINDINGS: 9 spot fluoroscopic views of the right upper quadrant from an ERCP procedure are correlated with MRCP dated 11/20/2018. The initial image shows the endoscope projecting over the stomach. There is cannulation the common bile duct. The common bile duct is dilated. A balloon sweep of the common d uct is performed. The final images show a common bile duct stent in place. IMPRESSION: ERCP images including common bile duct stent placement as above. See operative report for detailed findings. Electronically signed by: Victor Manuel Hernandez M.D. 11/20/2018 4:44 PM
[2018-11-20] MEDS: HYDROmorphone INJ 1 MG/ML SYRINGE IV PRN ×4 (16:54→17:09)
[2018-11-20] MEDS: fentaNYL citrate 100 MCG/2 ML VIAL IV PRN ×2 (17:14→17:19)
--- NOTE | 2018-11-20 17:27 | Anesthesiology Progress Note ---
Date of Service November 20, 2018 Anesthesia Post Procedure Vital Signs Vital Signs: Temp Pulse Pulse Pulse Resp BP BP 11/20/18 17:20 56 L 23 106/63 11/20/18 17:10 50 L 13 109/65 11/20/18 17:00 50 L 13 116/65 11/20/18 16:52 36.2 C L 72 17 114/69 11/20/18 07:23 36.5 C 67 16 99/67 L 11/20/18 04:45 36.7 C 58 L 18 93/54 L 11/20/18 00:08 37 C 70 16 110/71 11/19/18 23:40 11/19/18 23:30 119/73 11/19/18 23:20 11/19/18 23:02 114/82 11/19/18 22:50 69 19 11/19/18 22:40 70 16 11/19/18 22:30 68 17 88/74 L 11/19/18 22:27 75 20 117/73 11/19/18 22:26 71 13 117/73 11/19/18 21:15 59 L 18 11/19/18 21:08 61 19 123/56 L 11/19/18 21:07 57 L 19 123/56 L 11/19/18 20:06 36.7 C 71 20 123/74 Pulse Ox 11/20/18 17:20 100 11/20/18 17:10 100 11/20/18 17:00 100 11/20/18 16:52 100 11/20/18 07:23 100 11/20/18 04:45 99 11/20/18 00:08 98 11/19/18 23:40 100 11/19/18 23:30 11/19/18 23:20 95 11/19/18 23:02 11/19/18 22:50 100 11/19/18 22:40 98 11/19/18 22:30 98 11/19/18 22:27 96 11/19/18 22:26 98 11/19/18 21:15 99 11/19/18 21:08 95 11/19/18 21:07 98 11/19/18 20:06 98 Pain Intensity Upper Abdomen: Pain Intensity: 9 Abdomen: Pain Intensity: 4 Transfer of Care Handoff Completed per policy Notes Mental Status: alert / awake / arousable and participated in evaluation Patient Amnestic to Procedure: Yes Nausea / Vomiting: adequately controlled Pain: adequately controlled Airway Patency, RR, SpO2: stable & adequate BP & HR: stable & adequate Hydration State: stable & adequate Anesthetic Complications: no major complications apparent and Pt Satisfied with anesthetic care
--- NOTE | 2018-11-20 17:49 | Hospitalist Progress Note ---
Date of Service November 20, 2018 Assessment & Plan (1) Choledocholithiasis: MRCP confirmed. Bilirubin increasing. Cancelled HIDA scan. Appreciate GI and surgery consult. For ERCP followed by cholecystectomy today. NSS switched to LR due to increasing Chloride. Meets criteria for full admission (2) Biliary obstruction: ERCP as above No WBC or fever to suggest need for antibiotics for cholecystitis or cholangitis (3) Crohns disease: Chronic. Stable -Continue Azathioprine -Remicade (4) Venous thromboembolism (VTE) prophylaxis not indicated: Young age, short length of stay, ambulatory Subjective Patient seen in the morning prior to GI and surgery consults. Reports pain improved overnight, now sitting up in bed with only mild RUQ pain. No fever, nausea, vomiting, change in bowels or melena. She reports crohn's disease well controlled on current regiment of Remicade and azathioprine. Review of Systems Review of Systems: All systems reviewed & are unremarkable except as noted in HPI & below Physical Exam Constitutional: WD/WN, vitals as above ENMT: external ear and nose normal, oropharynx normal Respiratory: normal respiratory effort, lungs clear to auscultation Cardiovascular: RRR, no murmur, no edema Gastrointestinal (Abdomen): Inspection/Auscultation: abdomen normal to inspection and normal bowel sounds; abdomen not distended Percussion/Palpation: + abdomen tender (mild RUQ tenderness, no definitive Gaviria's sign) and abdomen soft; no guarding, abdomen not rigid and no hepatosplenomegaly Musculoskeletal: no cyanosis or clubbing, extremities motor strength 5/5 Skin: no rashes, warm and dry Neurologic: moves all extremities and awake; no focal motor deficits Motor/Sensory: no sensory deficit Psychiatric: A+Ox3, euthymic affect Results & Data Vital Signs (Past 12 Hours) Vital Signs Temp Pulse Pulse Resp BP Pulse Ox 11/20/18 17:40 56 L 10 L 104/61 100 11/20/18 17:30 97.5 F L 55 L 12 106/59 L 97 11/20/18 17:20 56 L 23 106/63 100 11/20/18 17:10 50 L 13 109/65 100 11/20/18 17:00 50 L 13 116/65 100 11/20/18 16:52 97.2 F L 72 17 114/69 100 09/30/19 07:23 97.7 F 67 16 99/67 L 100 PG Care Time/CCT Total # of Minutes Spent Total Time Spent with Patient: Total time spent is greater than 50% in coordination of care (as documented) at patient's floor/unit and/or counseling patient: (1) Crohns disease Digestive disease complication type: without complication Gastrointestinal tract location: unspecified location Qualified Code(s): K50.90 - Crohn's disease, unspecified, without complications
[2018-11-20] MEDS ORDERED: MoRPHine SULFATE 4 MG/ML 1 ML CARP\\VIAL IV PRN (18:23)
[2018-11-20] MEDS: LACTATED RINGER'S 1,000 ML IV SCH (19:53)
[2018-11-20] MEDS: HYDROCODONE/ACETAMOPHEN 5/325MG TAB PO PRN ×2 (21:15→22:12)
[2018-11-20] MEDS: FLUTICASONE PROPIONATE NA SPR 16 GM BTL SCH (21:25)
[2018-11-21 06:04] LABS: Hematocrit (blood only) 33.6 % (37-47); Hemoglobin 11.2 g/dL (12.0-16.0); Immature Granulocytes # (auto) 0.03 K/uL (0.00-0.02); Immature Granulocytes % (auto) 0.4 %; Lymphocytes # (auto) 0.67 K/uL (1.2-3.4); Lymphocytes % (auto) 8.1 %; Mean Corpuscular Hemoglobin 31.5 pg (25-34); Mean Corpuscular Hgb Conc 33.3 g/dL (32-36); Mean Corpuscular Volume 94.4 fL (80-100); Mean Platelet Volume 10.5 fL (7.4-10.4); Monocytes # (auto) 0.61 K/uL (0.11-0.59); Monocytes % (auto) 7.4 %; Neutrophils # (auto) 6.92 K/uL (1.4-6.5); Neutrophils % (auto) 84.1 %; Platelet Count 296 K/uL (130-400); RDW Coefficient of Variation 13.8 % (11.5-14.5); RDW Standard Deviation 47.5 fL (36.4-46.3); Red Blood Count 3.56 M/uL (4.2-5.4); White Blood Count 8.23 K/uL (4.8-10.8)
[2018-11-21 06:47] LABS: Albumin Globulin Ratio 0.8 (0.9-2); Albumin Level 2.8 gm/dl (3.4-5.0); BUN Creatinine Ratio 7.1 (10-20); Bilirubin Direct 0.5 mg/dl (0-0.2); Bilirubin,Total 1.8 mg/dl (0.2-1); Calcium 8.7 mg/dl (8.5-10.1); Creatinine Clr Calc Pharmacy 139.8 ml/min; Est GFR (African American) 146.8; Est GFR (Non-African American) 126.7; Globulin 3.4 gm/dl (2.5-4.0); Potassium 3.7 mmol/L (3.5-5.1); Total Protein 6.2 gm/dl (6.4-8.2)
[2018-11-21] MEDS: LACTATED RINGER'S 1,000 ML IV SCH ×2 (07:40→20:27)
--- NOTE | 2018-11-21 07:53 | Surgery Progress Note ---
Date of Service November 21, 2018 Assessment & Plan (1) Biliary obstruction: POD 1 lap elijah + ERCP clinically doing well though lipase elevated mildly advance diet per GI surgical instructions written as above. doing well. ok for d/c when ok with primary service. Subjective feels better, some incisional soreness, no nausea, tolerating clears Physical Exam Gastrointestinal (Abdomen): Inspection/Auscultation: + abdomen distended (slighlty) Percussion/Palpation: abdomen soft Results & Data Vital Signs (Past 12 Hours) Vital Signs Temp Pulse Resp BP Pulse Ox 11/21/18 07:13 36.8 C 69 16 104/67 97 11/21/18 03:05 37 C 78 16 108/66 98 11/20/18 23:15 36.8 C 86 16 105/70 98 11/20/18 21:20 36.6 C 75 16 112/70 97 11/20/18 20:25 37.1 C 68 16 110/71 100 PG Care Time/CCT Total # of Minutes Spent Total Time Spent with Patient: Total time spent is greater than 50% in coordination of care (as documented) at patient's floor/unit and/or counseling patient:
[2018-11-21] MEDS: HYDROCODONE/ACETAMOPHEN 5/325MG TAB PO PRN ×2 (08:54→20:24)
[2018-11-21] MEDS: azaTHIOprine 50 MG TAB PO SCH (09:13)
[2018-11-21] MEDS: ONDANSETRON INJ 2 MG/ML 2 ML VIAL IV PRN (09:14)
--- NOTE | 2018-11-21 12:25 | Gastroenterology Progress Note ---
Date of Service November 21, 2018 Assessment & Plan (1) Choledocholithiasis: Ms. Chisholm is a 23 yr old female post procedure day #1 from ERCP for choledocholithiasis with sphincterotomy and stent placement also post procedure day #1 from lap choley. Doubt clinical pancreatitis, more likely non significant lipasemia from surgery yesterday. 1. IV fluid. 2. Diet per surgery. 3. Will follow - because elevated lipase but no further GI procedures planned as an IP. 4. OP ERCP in 6 weeks for removal of stent. Attg add: I interviewed and examine pt, reviewed chart and labs. Pt without sig pain, lizet small amts of PO, no flatus. On exam, looks well, abd non tender, mild distention. Diet per surgery, analgesics per surgery. Reglan x 3 doses for ileus. Subjective Pt is post procedure day #1 from ERCP for choledocholithiasis with stent placement and lap cholecystectomy. LFTs improved: T Bili 2.8-> 1.8, AST 123->104, ALT 55->63, lipase did increase today: 93->2856. However, pt w/o clinical signs of pancreatitis: denies any abdominal pain though does have bloating and fullness, non tender on palpation of the epigastric area, no tachycardia or diaphoresis. Review of Systems Review of Systems: ROS: Gen: Denies weakness, fevers, weight loss Eyes: No eye redness, or pain, no recent vision changes Resp: No SOB, no cough Cardio: No palpitations/irregular beats, no chest pain GI: + post prandial upper abdominal pain, no nausea/vomiting : Denies pain on urination Skin: No jaundice, itching or new rashes Physical Exam Constitutional: WD/WN, vitals as above well developed, well nourished and + acute distress Eyes: PERRL, conjunctivae normal, anicteric sclerae ENMT: external ear and nose normal, oropharynx normal Neck: trachea midline, no thyromegaly Respiratory: normal respiratory effort, lungs clear to auscultation Cardiovascular: RRR, no murmur, no edema Gastrointestinal (Abdomen): Inspection/Auscultation: + abdomen distended (mild) and normal bowel sounds (hypoactive but present) Percussion/Palpation: + abdomen tender (minimal diffuse lower abdomen tenderness) and abdomen soft Skin: no rashes, warm and dry Neurologic: PERRL, EOMI, accommodation nl, no face palsy, no dysarthria Psychiatric: A+Ox3, euthymic affect Lymphatic: no cervical or axillary lymphadenopathy Results & Data Vital Signs (Past 12 Hours) Vital Signs Temp Pulse Resp BP Pulse Ox 11/21/18 07:13 36.8 C 69 16 104/67 97 11/21/18 03:05 37 C 78 16 108/66 98
--- NOTE | 2018-11-21 14:48 | Hospitalist Progress Note ---
Date of Service November 21, 2018 Assessment & Plan (1) Choledocholithiasis: POD #1 s/p ERCP with biliary stent in place. Bilirubin now downtrending (2) Biliary obstruction: resolved s/p ERCP as above. Biliary stent to be removed by GI in 6 weeks. (3) Elevated lipase: No significant epigastric pain to diagnose post-ERCP acute pancreatitis. Continue to trend lipase. IV fluids. Encourage oral intake. (4) Cholelithiasis: POD #1 s/p cholecystectomy. No cholecystitis from imaging, labs or clinically. No post OP BM or flatus currently. Pt encouraged to ambulate. (5) Crohns disease: Chronic. Stable -Continue Azathioprine -Remicade (6) Venous thromboembolism (VTE) prophylaxis not indicated: Chemical prophylaxis not indicated - Young age, short length of stay, ambulatory SCDs ordered (7) Discharge planning issues: Aim home tomorrow if lipase downtrending, tolerating solids and pain well controlled. Subjective POD#1 from ERCP and cholecystectomy yesterday. Having some generalized lower abdominal pain but well controlled on current regimen as per patient. No yet passing gas or had a BM. No nausea or vomiting. Tolerating liquids well but not solids. Review of Systems Review of Systems: All systems reviewed & are unremarkable except as noted in HPI & below Physical Exam Constitutional: WD/WN, vitals as above Eyes: + anicteric sclerae; normal pupil size ENMT: external ear and nose normal, oropharynx normal Respiratory: normal respiratory effort, lungs clear to auscultation Cardiovascular: RRR, no murmur, no edema Gastrointestinal (Abdomen): Inspection/Auscultation: abdomen normal to inspection and normal bowel sounds; abdomen not distended Percussion/Palpation: + abdomen tender (mild lower abdominal pain on palpation) and abdomen soft; no guarding and abdomen not rigid Musculoskeletal: no cyanosis or clubbing, extremities motor strength 5/5 Skin: no rashes, warm and dry Neurologic: moves all extremities and awake Psychiatric: A+Ox3, euthymic affect Results & Data Vital Signs (Past 12 Hours) Vital Signs Temp Pulse Resp BP Pulse Ox 11/21/18 07:13 98.2 F 69 16 104/67 97 11/21/18 03:05 98.6 F 78 16 108/66 98 PG Care Time/CCT Total # of Minutes Spent Total Time Spent with Patient: Total time spent is greater than 50% in coordination of care (as documented) at patient's floor/unit and/or counseling patient: (1) Crohns disease Digestive disease complication type: without complication Gastrointestinal tract location: unspecified location Qualified Code(s): K50.90 - Crohn's disease, unspecified, without complications (2) Cholelithiasis Cholelithiasis location: gallbladder and bile duct Cholecystitis presence: without cholecystitis Biliary obstruction: with biliary obstruction Qualified Code(s): K80.71 - Calculus of gallbladder and bile duct without cholecystitis with obstruction
[2018-11-21] MEDS: METOCLOPRAMIDE HCL 5 MG TABLET PO SCH ×2 (17:44→20:24)
[2018-11-21] MEDS: FLUTICASONE PROPIONATE NA SPR 16 GM BTL SCH (20:24)
[2018-11-22] MEDS: ONDANSETRON INJ 2 MG/ML 2 ML VIAL IV PRN (05:37)
[2018-11-22 06:31] LABS: Basophils # (auto) 0.01 K/uL (0-0.2); Basophils % (auto) 0.1 %; Eosinophils # (auto) 0.02 K/uL (0-0.5); Eosinophils % (auto) 0.2 %; Hematocrit (blood only) 34.2 % (37-47); Hemoglobin 11.1 g/dL (12.0-16.0); Immature Granulocytes # (auto) 0.02 K/uL (0.00-0.02); Immature Granulocytes % (auto) 0.2 %; Lymphocytes # (auto) 0.71 K/uL (1.2-3.4); Lymphocytes % (auto) 7.2 %; Mean Corpuscular Hemoglobin 31.2 pg (25-34); Mean Corpuscular Hgb Conc 32.5 g/dL (32-36); Mean Corpuscular Volume 96.1 fL (80-100); Mean Platelet Volume 10.4 fL (7.4-10.4); Monocytes # (auto) 0.89 K/uL (0.11-0.59); Neutrophils % (auto) 83.3 %; Platelet Count 287 K/uL (130-400); RDW Coefficient of Variation 14.2 % (11.5-14.5); RDW Standard Deviation 49.9 fL (36.4-46.3); Red Blood Count 3.56 M/uL (4.2-5.4); White Blood Count 9.85 K/uL (4.8-10.8)
[2018-11-22 07:06] LABS: BUN Creatinine Ratio 7.5 (10-20); Calcium 8.1 mg/dl (8.5-10.1); Creatinine Clr Calc Pharmacy 131.1 ml/min; Est GFR (African American) 143.7; Potassium 3.5 mmol/L (3.5-5.1)
[2018-11-22 07:09] LABS: Albumin Globulin Ratio 0.9 (0.9-2); Bilirubin,Total 1.8 mg/dl (0.2-1); Globulin 3.5 gm/dl (2.5-4.0); Total Protein 6.5 gm/dl (6.4-8.2)
[2018-11-22] MEDS: METOCLOPRAMIDE HCL 5 MG TABLET PO SCH ×3 (07:32→17:00)
[2018-11-22] MEDS: LACTATED RINGER'S 1,000 ML IV SCH (07:34)
[2018-11-22] MEDS: HYDROCODONE/ACETAMOPHEN 5/325MG TAB PO PRN (09:55)
--- NOTE | 2018-11-22 11:38 | Surgery Progress Note ---
Date of Service November 22, 2018 Assessment & Plan (1) Cholelithiasis: no surgical issues lipase still elevated. bilirubin decreasing d/c instructions given. f/u in office in 7-10 days. Subjective pt seen. feeling ok currently. not much appetite. Physical Exam Physical Exam: alert. oriented. nad. abd: soft. nt. incisions look good. Results & Data Vital Signs (Past 12 Hours) Vital Signs Temp Pulse Pulse Resp BP Pulse Ox 11/22/18 07:41 37.1 C 57 L 96 H 16 112/71 96 11/22/18 07:10 37.1 C 96 H 16 112/ 96 PG Care Time/CCT Total # of Minutes Spent Total Time Spent with Patient: Total time spent is greater than 50% in coordination of care (as documented) at patient's floor/unit and/or counseling patient: (1) Cholelithiasis Cholelithiasis location: gallbladder and bile duct Cholecystitis presence: without cholecystitis Biliary obstruction: with biliary obstruction Qualified Code(s): K80.71 - Calculus of gallbladder and bile duct without cholecystitis with obstruction
--- NOTE | 2018-11-22 12:40 | Gastroenterology Progress Note ---
Date of Service November 22, 2018 Assessment & Plan (1) Choledocholithiasis: Ms. Chisholm is a 23 yr old female post procedure day #2 from ERCP for choledocholithiasis with sphincterotomy and stent placement also post procedure day #2 from lap choley. Doubt clinical pancreatitis, more likely non significant lipasemia. 1. IV fluid. 2. Diet per surgery. 3. Will follow - because elevated lipase but no further GI procedures planned as an IP. 4. No GI contraindication to D/C. would recheck lipase again in 3-4 weeks. If remains elevated than consider dedicated imaging of the pancreas. I have placed the order for lipase recheck in [facility] and pt is aware. 5. OP ERCP in 6 weeks for removal of stent. Attg add: I interviewed and examined pt, reviewed chart and labs.Pt is without clinical evidence of pancreatitis; she has appropriate abd pain post surgery. Abd is unremarkable. Plan as above. Subjective Ms Henri Chisholm is a 23 yr old female who is post procedure day #2 from ERCP and lap cholecystectomy. Tolerating liquid diet. Passed a BM. Less bloating. However, had missed taking two days of her OCs and started menstruating today with typically menstrual symptoms: headache, nausea, lower abdomen cramping. Labs: LFTs continue to improve: T Bili 2.4->1.8, D bili 1,3->0.5, AST 123->64, ALT 63- >59, Alk Phos 75->70. Lipase continues to be elevated post ERCP/cholecystectomy: 2856->2707 but no clinic signs of pancreatitis (no upper abd pain, no diaphoresis, no tachycardia). Review of Systems Review of Systems: ROS: Gen: Denies weakness, fevers, weight loss Eyes: No eye redness, or pain, no recent vision changes Resp: No SOB, no cough Cardio: No palpitations/irregular beats, no chest pain GI: + lower abd/pelvic cramping; no post prandial upper abdominal pain, no nausea/vomiting : Denies pain on urination Skin: No jaundice, itching or new rashes Physical Exam Constitutional: WD/WN, vitals as above well developed and well nourished pt uncomfortable, nauseated, reports similar to typical menstrual syptoms Eyes: PERRL, conjunctivae normal, anicteric sclerae ENMT: external ear and nose normal, oropharynx normal Neck: trachea midline, no thyromegaly Respiratory: normal respiratory effort, lungs clear to auscultation Cardiovascular: RRR, no murmur, no edema Gastrointestinal (Abdomen): Inspection/Auscultation: normal bowel sounds (hypoactive but present); abdomen not distended Percussion/Palpation: + abdomen tender (minimal diffuse lower abdomen tenderness) and abdomen soft Skin: no rashes, warm and dry Neurologic: PERRL, EOMI, accommodation nl, no face palsy, no dysarthria Psychiatric: A+Ox3, euthymic affect Lymphatic: no cervical or axillary lymphadenopathy Results & Data Vital Signs (Past 12 Hours) Vital Signs Temp Pulse Pulse Resp BP Pulse Ox 11/22/18 07:41 37.1 C 57 L 96 H 16 112/71 96 11/22/18 07:10 37.1 C 96 H 16 112/71 96
[2018-11-22 15:03] VITALS: BP 115/74; PULSE 92; O2SAT 98
[2018-11-22 15:46] VITALS: TEMP 98.6
--- NOTE | 2018-11-22 17:48 | Discharge Summary ---
Date of Service November 22, 2018 Admission HPI Per Admitting Provider Henri Chisholm is a 23yo C female with history of Crohn's disease on immunosuppressive therapy with Azathioprine and Remicade presenting with acute onset of upper abdominal pain. Patient was at a birthday [employer] this afternoon and ate some cake and a sandwich. Approximately one hour after eating she developed severe RUQ and upper abdominal pain. Pain rated 8-9/10, squeezing in nature associated with nausea. She denies fevers/chills/jaundice or icterus. No diarrhea/melena/hematochezia. No sick contacts. No history of prior. Still with discomfort 4/10 in severity. Patient's Crohn's is well controlled with her current regimen. She states that this pain is nothing like her prior Crohn's flares. ER Course: Fentanyl, Toradol, Zofran, NSS Admission Exam Per Admitting Provider General: patient sitting upright in bed, NAD, non-toxic in appearance, AA&O x 4 Skin: warm, dry, intact, no rashes or lesions, no jaundice HEENT: NC/AT, PERRL, EOMI, anicteric sclera, conjunctiva without injection, external ear normal to inspection and nontender, nares patent, moist mucus membranes, dentition intact, no oropharyngeal lesions, neck supple, trachea midline, no LAD, no thyromegaly, no JVD Heart: +S1/S2, regular, no m/r/g Lungs: equal air entry bilaterally, no rales/rhonchi/wheezes Abd: +BS, soft, ND, tenderness to palpation in the epigastric region and RUQ with voluntary guarding, no masses/organomegaly/ascites Ext: warm, 2+ pulses in UE/LE bilaterally, no clubbing/cyanosis or edema Neuro: nonfocal, patient AA&O x 4, speech intact, no facial droop, moving all extremities on command with equal strength 5/5 Principal Diagnosis Choledocholithiasis Biliary obstruction Elevated lipase after ERCP Cholelithiasis Discharge Exam Constitutional WD/WN, vitals as above Eyes + anicteric sclerae; normal pupil size ENMT external ear and nose normal, oropharynx normal Respiratory normal respiratory effort, lungs clear to auscultation Cardiovascular RRR, no murmur, no edema Gastrointestinal (Abdomen) Inspection/Auscultation: abdomen normal to inspection and normal bowel sounds; abdomen not distended Percussion/Palpation: + abdomen tender (lower abdominal cramping) and abdomen soft; no guarding and abdomen not rigid Musculoskeletal no cyanosis or clubbing, extremities motor strength 5/5 Skin no rashes, warm and dry Neurologic moves all extremities and awake Motor/Sensory: no sensory deficit Psychiatric A+Ox3, euthymic affect Discharge Data Allergies Allergy/AdvReac Type Severity Reaction Status Date / Time cephalexin AdvReac Hives Unverified 11/20/18 14:14 Consultations 11/20/18 08:58 Consult Gastroenterology Routine 11/20/18 10:34 Consult General Surgery Routine Procedures Performed Operation Date: 11/20/18 08:40 Actual Procedures p Endoscopic Retrograde Cholangiopancreatogram; spincterotomy, placement of biliary stent(Not Applicable) - MD lolly Tamayo Laparoscopic Cholecystectomy(Not Applicable) - Gerber Finley, Ordered Studies 11/19/18 20:52 US gallbladder Stat 11/20/18 00:45 MR MRCP Routine 11/20/18 13:12 FL ERCP biliary ductal Routine Hospital Course (1) Choledocholithiasis: POD #2 s/p ERCP with biliary stent in place. Bilirubin now downtrending (2) Biliary obstruction: resolved s/p ERCP as above. Biliary stent to be removed by GI in 6 weeks. (3) Elevated lipase: No significant epigastric pain to diagnose post-ERCP acute pancreatitis. Lipase to be repeated by GI in 3-4 weeks to check for resolution (4) Cholelithiasis: POD #2 s/p cholecystectomy. No cholecystitis from imaging, labs or clinically. had BM post operatively. (5) Crohns disease: Chronic. Stable -Continue Azathioprine -Remicade Total Time Total Time Spent Total Time Spent (In Minutes): 45 Total Time Includes: Examination of the Patient, Discharge Planning, Medication Reconciliation and Communication With Other Providers Discharge Plan Discharge Items Patient Disposition: Home - Self-Care Reason For Visit: CHOLECYSTITIS, ABDOMINAL PAIN Discharge Diagnosis: Choledocholithiasis - gall stones in common bile duct Biliary obstruction Elevated lipase after ERCP Cholelithiasis (Gall stones) Lifting: No more than 10 pounds Bathing: No limitations Driving/Machine Use: do not resume driving if you are taking narcotics for pain 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 You may call the office sooner if you have any questions/concerns.) Srini Alfaro [Physician] - PCP,NO [Primary Care Provider] - Diet: Low Fat Addtl Attending Provider Instructions: please excuse from work until tuesday You were diagnosed with the gallstones causing biliary obstruction. This was treated with ERCP (endoscopic retrograde cholangio-pancreatography) with spincterotomy and placement of biliary stent - removal of stones in common bile duct and stent placement. To prevent re-occurrence you gall bladder was surgical removed (cholecystectomy). You developed mildly elevated lipase after the ERCP which was treated with IV fluids. Given lack of abdominal pain and keeping well hydrated with the lipase trending down this can be managed as an outpatient and gastroenterology have arranged for you to have a repeat lipase level in 1 week. [place] was prescribed for pain as needed. Ondansetron prescribed as needed for nausea. If you develop increasing abdominal pain in the next 2-3 days recommend returning to the ER. You will be followed up by surgery and gastroenterology - phone number provided above (please call if no appointment arranged in the next 7 days). Biliary stent to be removed by gastroenterology in approximately 6 weeks. Pending Studies at Discharge: No Stand-Alone Forms: My [facility], Opioid Pain Management, Work/School Release (Inpt) Medications and DC Order Prescriptions: New hydrocodone-acetaminophen [[place]] 5-325 mg tablet 1 - 2 tab PO Q4H PRN (Reason: pain, initial therapy) Qty: 15 RF: 0 ondansetron 4 mg tablet,disintegrating 4 mg PO Q6H PRN (Reason: nausea and vomiting) Qty: 14 RF: 0 Continued levonorgestrel-ethinyl estrad [[place] (28)] 0.15-0.03 mg Tablet 1 tab PO QAM RF: 0 azathioprine 50 mg Tablet 100 mg PO QAM RF: 0 Remicade 100 mg Recon Soln 100 mg IV DIRECTED RF: 0 fluticasone propionate [Flonase Allergy Relief] 50 mcg/actuation [place],Suspension 1 spray INTRANASAL HS RF: 0 Discharge Orders: Discharge Order (Routine); Ordered 11/22/18 Ordered By: Wil Andrade/Other Patient Handouts: Lipase, Cholecystectomy Laparoscopic, ERCP, Pancreatitis Admission Data Admit Date/Time: 11/20/18 10:30 Attending Provider: Wil Rice Admit Provider: Gita Fried Primary Care Provider: PCP,NO Other Providers: Gita Fried ; Anna Fang ; Hortensia Meadows ; Srini Alfaro ; Yesi Lane ; Gerber Finley ; Kevin Menezes ; Jazmin Espino Other Interventions: Discharge Summary Assessment (RN) Last Done: 11/22/18 07:41 DC Date/Time DO NOT enter until pt leaves facility: 11/22/18 18:47
== END 2018-11-22 18:47 | disposition home or self-care (01) | DRG 418 ==
LOC: ED 20:02 → 2N 20:02 → SUATTDRO 23:12 → 2N 23:46 → 3N 11-20 18:32
DX: Z79.3 Long term (current) use of hormonal contraceptives; Z88.1 Allergy status to other antibiotic agents; K80.71 Calculus of gallbladder and bile duct without cholecystitis with obstruction; Z79.899 Other long term (current) drug therapy; K50.90 Crohn's disease, unspecified, without complications